=== PATIENT | female | born 1990 | race Caucasian/White ===

== ENCOUNTER 2023-04-28 00:33 | Emergency (ER) | payer OTHER, SELFPAY ==
[2023-04-28 00:36] VITALS: BP 146/88; PULSE 89; RESP 16; TEMP 36.7; O2SAT 99
--- NOTE | 2023-04-28 00:44 | PC.NURSE ---
Pt presents to ER for left sided lower jaw /tooth pain Pt states this started a few weeks ago but has worsened Pt states the pain has spread across the entire left side of her face and into her left ear Pt does not currently have an appointment scheduled to see the dentist but states she plans to call tomorrow
--- NOTE | 2023-04-28 00:55 | ED_ITS ---
HPI - General Adult General Chief complaint: Dental/Oral Stated complaint: DENTAL PAIN Time Seen by Provider: 04/28/23 00:45 Source: patient Mode of arrival: walk-in Limitations: no limitations History of Present Illness HPI narrative: Patient is a 33-year-old female who is presenting to the Emergency Room today with acute on chronic dental pain. Patient is having pain to #18. Patient site dentist 6 months ago, showed a dental cleaning at that time. Patient was referred to an oral surgeon at that time to have #18 extracted. Patient put it off and did not follow-up with oral surgeon. For the past 2 weeks been having pain to tooth #18, the last 2 days. Having pain to left side of her face. She is also been having pain to her left ear and some loss or difficulty with hearing as well. Patient had no new fall, no new trauma. Patient's hearing has improved, but the pain to left side of her face has not. Patient has some mild swelling, she has a cold bottle of water on the left side of her face or walk into the room. Patient knows that she needs to see and follow-up with her oral surgeon. Patient does not taste any foul taste or pus in her mouth. No abscess noted. Patient's having acute on chronic pain. Other acute complaints this time. Patient Left work to come into the Emergency Room For evaluation. Patient works in a factory. . All systems are negative except as noted/marked. All systems reviewed and otherwise negative. . Nurses note and vital signs reviewed and patient is not hypoxic. Nurses notes reviewed and patient is noted to be non-hypoxic. General: The patient is comfortable, alert and oriented x3, well appearing, non toxic in no apparent distress. Head: Atraumatic and normocephalic. Eyes: Normal conjunctiva ENT: The oropharynx is normal. No pharyngeal erythema, uvular edema, tonsillar exudates, asymmetry or trismus. Uvula is midline. Mouth is normal to inspection With the exception of a pain on percussion of the tooth #18 and evidence of dental caries. There is no evidence of facial asymmetry or abscess formation. Floor of the mouth is soft. No tenderness in the submental or submandibular space. No tongue elevation or deviation. The patient has no evidence of periapic al abscess, gingivitis, ANUG or other acute pathology. Airway is patent. Patient's left tympanic membrane shows no erythema, perforation or bulging.Patient has normal hearing at this time. Her left ear. Patient has moderate tenderness to palpation to left temporomandibular joint joint as well. No pain to the right temporomandibular joint joint. Right ear within normal limits. Neck: The neck demonstrates normal range of motion. No meningeals signs are present. No stridor. No masses or lymphandenopathy noted. Respiratory: No acute distress, lungs are clear to auscultation, no wheezing, rhonchi, or rales noted. No stridor or retractions are noted. Cardiovascular: Regular rate and rhythm Skin: The skin exam shows no evidence of rashes Neuro: Alert and oriented x4, normal speech Lymphatic: No cervical lymphadenopathy Related Data Home Medications Medication Instructions Recorded Confirmed sertraline 50 mg tablet (Zoloft) 50 mg PO DAILY 04/28/23 04/28/23 Allergies Allergy/AdvReac Type Severity Reaction Status Date / Time No Known Drug Allergies Allergy Verified 04/28/23 00:40 PFSH PFS Social History Smoking status: Current every day smoker Exam Constitutional Vital Signs, click to edit/add: Last Vital Signs Temp 98.1 F 04/28/23 00:36 Pulse 89 04/28/23 00:36 Resp 16 04/28/23 00:36 BP 146/88 H 04/28/23 00:36 Pulse Ox 99 04/28/23 00:36 O2 Del Method Room Air 04/28/23 00:36 Course Vital Signs Vital signs: Vital Signs Temperature 98.1 F 04/28/23 00:36 Pulse Rate 89 04/28/23 00:36 Respiratory Rate 16 04/28/23 00:36 Blood Pressure 146/88 H 04/28/23 00:36 Pulse Oximetry 99 04/28/23 00:36 Oxygen Delivery Method Room Air 04/28/23 00:36 Temperature 98.1 F 04/28/23 00:36 Pulse Rate 89 04/28/23 00:36 Respiratory Rate 16 04/28/23 00:36 Blood Pressure 146/88 H 04/28/23 00:36 Pulse Oximetry 99 04/28/23 00:36 Oxygen Delivery Method Room Air 04/28/23 00:36 Medical Decision Making MDM Narrative Medical decision making narrative: Patient was given dental analgesia. Patient was given a dental list as well. Patient knows that she has to follow up with Oral surgeon. Patient is to continue to use ice, alternate Tylenol and anti-inflammatories, and follow-up with oral surgeon and dentist as needed. Symptomatically treatment of temporomandibular joint using anti-inflammatories, soft diet, and ice was discussed as well. Discharge Plan Discharge Chief Complaint: Dental/Oral Clinical Impression: Atypical face pain, Toothache Patient Disposition: Home, Self-Care Time of Disposition Decision: 00:51 Condition: Fair Prescriptions / Home Meds: No Action sertraline [Zoloft] 50 mg tablet 50 mg PO DAILY Instructions: Toothache (ED), Atypical Facial Pain (ED) Additional Instructions: Ice 20 minutes on, 20 minutes off. Call dentist in the morning or oral surgeon to have your tooth pulled and removed. Work note given. Alternate Tylenol and either motion/Advil/ibuprofen every 4 hours up with pain. Use dental analgesia every 3-4 hours at help with pain. Dental list provided Stand Alone Forms: Work/School Release, Portal Instructions Referrals: Physician,Non-Staff, MD [Primary Care Provider] - 1 week
[2023-04-28] MEDS: BENZOCAINE 30 ML, lidocaine HCL 15 ML MM (01:07)
== END 2023-04-28 01:09 | disposition home or self-care (01) ==
PROVIDERS: Emergency Provider Emergency Medicine
DX: K08.89 Other specified disorders of teeth and supporting structures (principal); G50.1 Atypical facial pain; F17.210 Nicotine dependence, cigarettes, uncomplicated
CPT/HCPCS: 99283